=== PATIENT | male | born 1965 | race Caucasian/White ===

== ENCOUNTER → 2016-11-29 | Outpatient (CLI) | payer OTHER ==
--- NOTE | 2016-11-29 15:05 | KCIC ---
INDICATION: Recurrent low back pain. Occasional right hip pain. TECHNIQUE: Sagittal T1, sagittal T2, sagittal STIR, axial T1, and axial T2 sequences are provided. Comparison is from March 07, 2016. FINDINGS: There is no change in alignment. There is no worrisome marrow lesion. There is no marrow edema. There is disc desiccation greatest at L4-L5. The conus medullaris is normal in signal intensity and in position. The numbering system assumes 5 lumbar type vertebral bodies. Findings by individual level are as follows: L1-L2, L2-L3: There is no canal or foraminal compromise. L3-L4: There is a minimal disc bulge and facet hypertrophy without canal stenosis. There is minimal foraminal narrowing inferiorly. L4-L5: There is a mild disc bulge and facet hypertrophy. Disc bulge again is eccentric to the right. Right foraminal annular fissure again is noted. There is mild lateral recess narrowing bilaterally. There is mild right foraminal narrowing. L5-S1: There is a minimal disc bulge and facet hypertrophy without canal or foraminal compromise. IMPRESSION: Mild degenerative changes in the lumbar spine again are greatest at L4-L5. Findings are similar to prior. Electronically signed by: Chris Fregoso MD (11/29/2016 3:02 PM) [email or web address]
== END | disposition home or self-care (01) ==
LOC: KCIC MRI 13:38
PROVIDERS: ATTEND Family Medicine
DX: M47.896 Other spondylosis, lumbar region (principal); M25.551 Pain in right hip
CPT/HCPCS: 72148

== ENCOUNTER → 2017-02-06 | Outpatient (CLI) | payer OTHER ==
--- NOTE | 2017-02-06 08:13 | KCIC ---
MRI Lumbar Spine without contrast History: Low back pain, radicular pain, right hip pain Technique: Multiplanar, multi sequential noncontrast MR imaging was performed of the lumbar spine. Contrast: None Comparison: None Findings: Lumbar vertebral body stature is maintained. There is mild degenerative disc disease at L4-5. There is negligible anterior spondylolisthesis L4-5. There is edema of the right L4-L5 facet articular processes and right L5 pedicle. Conus terminates at L1-2. L2-L3: Spinal canal and neural foramina are adequate. L3-L4: There is minimal disc osteophyte complex and bulge. Spinal canal and neural foramina are adequate. L4-L5: There is [id number] facet hypertrophic change greater on the right. There is mild buckling of the ligamentum flavum. There is minimal disc osteophyte complex and bulge. There is minimal narrowing of the far lateral recesses bilaterally. There is mild narrowing of the right neural foramen, left neural foramen overall adequate. L5-S1: Spinal canal and the neural foramina are adequate. There is mild right facet degenerative change. Impression: 1. There is no significant lumbar spinal stenosis, minimal narrowing of the far lateral recesses bilaterally at L4-5. There is mild degenerative disc disease at L4-5. There is negligible anterior spondylolisthesis at L4-5 at which there is facet degenerative change. There is minimal narrowing of the right L4-5 neural foramen. 2. There is edema of the right L4-5 facet articular processes and the right L5 pedicle probably reactive/degenerative in etiology. Electronically signed by: Wayne Motta MD (02/06/2017 8:10 AM) [email or web address]
== END | disposition home or self-care (01) ==
LOC: KCIC MRI 07:33
PROVIDERS: ATTEND Family Medicine
DX: M51.36 Other intervertebral disc degeneration, lumbar region (principal); M43.16 Spondylolisthesis, lumbar region; M25.551 Pain in right hip; R60.0 Localized edema
CPT/HCPCS: 72148

== ENCOUNTER 2017-02-23 07:46 | Day surgery (SDC) | payer OTHER ==
[~2017-02-23] VITALS: Ht 175.3 cm; Wt 88.5 kg
[~2017-02-23 07:46] MED LIST: BIOT10004 PO; BUPIVAC MPF-EPI 0.5%-1:200000 30 ML VIAL. ONE; CHOL2000 PO; CLON0.5T3 PO; CYCL1DRO EACHEYE; IBUP200T44 PO; IV RINGERS,LACTATED 1000ML 1,000 ML IV SCH; LIDOCAINE 1% PF 2 ML VIAL. ID PRN; MAGN400C PO; OMEG1CAP27 PO; ONDANSETRON PF 4 MG/2 ML VIAL. IV PRN; PROCHLORPERAZINE 10 MG/2 ML VIAL. IV PRN; TEST200V3 IM; VITA1TAB3 PO; VITA400C37 PO; fentaNYL PF VIAL 100 MCG/2 ML VIAL IV PRN
[2017-02-23] MEDS ORDERED: fentaNYL PF VIAL 100 MCG/2 ML VIAL ONE (08:34)
[2017-02-23] MEDS ORDERED: LIDOCAINE 2% PF Vial for OR 5 ML VIAL. ONE (08:34)
[2017-02-23] MEDS ORDERED: PROPOFOL 20 ML IV ONE (08:34)
[2017-02-23] MEDS ORDERED: DEXAMETHASONE SOD PHOS 20 MG/5 ML VIAL. ONE (10:13)
[2017-02-23] MEDS ORDERED: DESFLURANE 31 TO 60 MINUTES IH ONE (10:13)
[2017-02-23] MEDS ORDERED: ONDANSETRON PF 4 MG/2 ML VIAL. ONE (10:14)
[2017-02-23] MEDS ORDERED: GLYCOPYRROLATE 1 MG/5 ML VIAL. ONE (10:14)
--- NOTE | 2017-02-23 11:14 | PDOC4 ---
Operative Note Operative Note Date: 02/23/2017 Preoperative diagnosis: Right inguinal hernia Postoperative diagnosis: The same Procedure: Robotic-assisted laparoscopic right inguinal hernia repair with mesh Surgeon: Charles Specimen: None Dictation: Patient is a 51-year-old male with complaints of a painful right bulge in the groin area consistent with a right inguinal hernia. Procedure of robotic-assisted laparoscopic right internal hernia repair with mesh was explained to the patient detail was brought up its were also discussed including bleeding infection injury to intra-abdominal contents possibly necessitating further or open operations. The patient seemed understanding gave both verbal and written consent to have the procedure performed. Patient was taken to the operating room placed in the supine position general anesthesia was initiated once patient was asleep and intubated he was placed in low lithotomy positioning and his groin and abdomen were prepped and draped usual sterile fashion using ChloraPrep. At this point an area at the umbilicus was injected with half percent Marcaine with epinephrine incision was made with 11 blade scalpel and a varies needle was placed within the abdomen creating a pneumoperitoneum. A 8 mm port was placed and a da Opal camera was placed within the abdomen which was inspected was noted to be a small hernia in the right inguinal area. At this point an 8 mm port was placed under direct visualization in the left mid abdomen and one in the right mid abdomen. The da Opal robot was brought in and docked all ports. At this point the surgeon went to the robotic console and using a grasper and Endo Ramírez scissors the peritoneum over the right groin was incised and opened up propagated inferiorly exposing the hernia the hernia contents were reduced along with the hernia sac. Bard 3-D max mesh was then placed over the hernia defect once this was in place the peritoneum was then closed with a running V lock suture. The da Opal and [place] removed as well as the ports the pneumoperitoneum was reduced. Skin incisions were closed with 40 septic or Monocryl Mastisol Steri-Strips and Band- Aids were applied as dressings. She was awakened and asked made in the operating room taken recovery in stable condition all sponge instrument needle counts listed as correct estimated blood loss 10 mL KRYS CALDERON MD Feb 23, 2017 11:14
--- NOTE | 2017-02-23 11:15 | DISCH ---
DISCHARGE INSTRUCTIONS Condition on Discharge Condition on Discharge: Stable Activity After Discharge Activity Instructions for Disc: Avoid exertion Other activity instructions: No lifting >20lbs for 2 weeks Diet after Discharge Diet after Discharge: Regular Wound Incision Care Other wound/incision instructi: May shower in 24 hours Contacting the after DC Call your doctor for: If your condition worsens Follow-Up Follow up with: Dr Calderon in 2 weeks KRYS CALDERON MD Feb 23, 2017 11:15
[2017-02-23] MEDS: fentaNYL PF VIAL 100 MCG/2 ML VIAL IV PRN ×2 (11:30→11:37)
[2017-02-23] MEDS: MORPHINE SULFATE 2 MG/ML DISP.SYRIN. IV PRN ×4 (11:35→12:08)
[2017-02-23] MEDS: HYDROmorphone 2 MG/ML VIAL IV PRN ×4 (11:50→12:31)
[2017-02-23] MEDS ORDERED: OXYC-323 PO (12:00)
[2017-02-23] MEDS ORDERED: oxyCODONE/APAP 5/325 1 TAB TABLET PO PRN (12:15)
[2017-02-23 12:37] VITALS: BP 119/58
== END 2017-02-23 13:21 | disposition home or self-care (01) ==
LOC: SURG 07:46
PROVIDERS: ATTEND Surgery
DX: K40.90 Unilateral inguinal hernia, without obstruction or gangrene, not specified as recurrent (principal); G47.30 Sleep apnea, unspecified; E66.3 Overweight; E16.2 Hypoglycemia, unspecified; M19.90 Unspecified osteoarthritis, unspecified site; Z85.828 Personal history of other malignant neoplasm of skin; F43.10 Post-traumatic stress disorder, unspecified; Z98.890 Other specified postprocedural states
CPT/HCPCS: 49650; C1781; J0780; J1100; J1170; J1956; J2270; J2405; J2704; J3010; J3490; J2001

== ENCOUNTER → 2018-02-14 | Outpatient (CLI) | payer OTHER ==
[~2018-02-14] MED LIST changes: -BUPIVAC MPF-EPI 0.5%-1:200000 30 ML VIAL. ONE; +CLON0.5T11 PO; -CLON0.5T3 PO; -IV RINGERS,LACTATED 1000ML 1,000 ML IV SCH; -LIDOCAINE 1% PF 2 ML VIAL. ID PRN; -ONDANSETRON PF 4 MG/2 ML VIAL. IV PRN; +OXYC1TAB15 PO; -PROCHLORPERAZINE 10 MG/2 ML VIAL. IV PRN; -fentaNYL PF VIAL 100 MCG/2 ML VIAL IV PRN
--- NOTE | 2018-02-14 09:58 | KCIC ---
EXAM: Lumbar spine MRI without contrast. HISTORY: Lower back pain and lower extremity radiculopathy. TECHNIQUE: Multiplanar, multisequence magnetic resonance imaging of the lumbar spine was performed without contrast. COMPARISON: 02/06/2017 FINDINGS: There is no significant listhesis. The vertebral bodies are normal in height. There is slight disc desiccation at L4-L5. No suspicious osseous lesion is seen. The conus terminates at L1. There is edema within the right L4 and L5 pedicles. This may be degenerative or due to a stress reaction. At L1-L2 and L2-L3, there is no stenosis. At L3-L4, there is a mild disc bulge. There is minimal bilateral foraminal stenosis. At L4-L5, there is a right foraminal to extra foraminal disc protrusion and annular tear. This is superimposed on a disc bulge and endplate remodeling. There is moderate right and mild left facet arthropathy. There is mild right foraminal stenosis with abutment of the exiting right L4 nerve root. At L5-S1, there is a tiny posterior central annular tear and 4 mm superior extrusion. There is no stenosis. IMPRESSION: 1. L4-L5: Slight interval increase in a right foraminal to extra foraminal disc protrusion superimposed on a disc bulge and endplate remodeling and moderate right and mild left facet arthropathy. This results in minimally increased mild right foraminal stenosis with abutment of the exiting right L4 nerve root. 2. Minimal to mild degenerative change at multiple additional lumbar levels, not appreciably changed compared to the prior study. Electronically signed by: Juliann Mcallister MD (02/14/2018 9:54 AM) [email or web address]
== END | disposition home or self-care (01) ==
LOC: KCIC MRI 09:05
PROVIDERS: ATTEND Family Medicine
DX: M51.26 Other intervertebral disc displacement, lumbar region (principal); M12.88 Other specific arthropathies, not elsewhere classified, other specified site; M48.061 Spinal stenosis, lumbar region without neurogenic claudication; M51.36 Other intervertebral disc degeneration, lumbar region
CPT/HCPCS: 72148